=== PATIENT | male | born 1945 | race Caucasian/White ===

== ENCOUNTER 2016-10-28 11:13 | Inpatient (IN) ==
[2016-10-28] MEDS ORDERED: KETOROLAC 30 MG/ML INJECTION IVP ONE (12:40)
[2016-10-28] MEDS: SALINE FLUSH 10ml SYRINGE IVF PRN ×2 (12:58→16:10)
--- NOTE | 2016-10-28 13:08 | Emergency Department Report ---
Abdominal Pain HPI - General Chief Complaint: Abdominal Pain Stated Complaint: Abd pain Time Seen by Provider: 10/28/16 12:05 Source: patient Mode of arrival: ambulatory Limitations: no limitations - History of Present Illness HPI narrative: Mr Campbell is a pleasant 71 year old gentleman who comes to the ER at the recommendation of his PCP Dr. Ankit John at [facility] in [place]. Patient is a newly diagnosed diabetic as of yesterday and Dr. John sent him here for evaluation of DKA according to his notes. Patient reports having a 4 month history of right sided abdominal pain that is constant but intensity fluctuates. Prior cholecystecomy. Denies n/v/d. No fevers. Reports bowels have been irregular, last BM 3 days ago. Takes Senna S prn for bowel motivation, took 2 tabs this morning and 1 last evening. No BM today. Had a colonoscopy in [place] by Dr. Velarde on 10/13 and a biopsy was taken but no results given to patient yet. He was advised of diverticulosis. EGD did not show anything abnormal according to patient. Patient has additional hx of BPH and urine retention and has seen Dr. Hall for this. Takes generic flomax and finasteride currently. Patient has a recent hx of urine frequency but that has simmered down since starting insulin yesterday he reports. Hgb A1c 12.2% yesterday in clinic. UA done and showed glucosuria and ketones but no infectious findings. Patient is tearful and frustrated about the discomfort he has been experiencing, feels he has not been able to obtain adequate pain control and indicates his PCP will not prescribe pain medications. No known hx of pancreatitis. No known hx of hypertriglyceridemia. MD complaint: abdominal pain Onset (ago): month(s) (4) Consistency: constant Location: RUQ, RLQ Quality: sharp Radiation: epigastric Relieving factors: medication (Coleman) Exacerbating factors: nothing Associated symptoms: denies other symptoms Treatments prior to arrival: prescription analgesics - Related Data Home Medications Medication Instructions Recorded Confirmed Acetaminophen [Tylenol Extra 1,000 mg PO Q6H PRN #0 07/25/15 10/28/16 Strength] Fluticasone/Salmeterol [Advair 1 puff INH BID #0 07/25/15 10/28/16 100-50 Diskus] Montelukast Sodium 10 mg PO HS #0 07/25/15 10/28/16 Pravastatin Sodium 40 mg PO DAILY #0 07/25/15 10/28/16 ALPRAZolam [Xanax] 4 mg PO HS #0 02/29/16 10/28/16 Finasteride 5 mg PO HS #0 02/29/16 10/28/16 Ascorbic Acid [Vitamin C] 2,000 mg PO DAILY 10/28/16 10/28/16 Canagliflozin/Metformin HCl 1 tab PO BIDWM 10/28/16 10/28/16 [Invokamet 50-500 mg Tablet] Carvedilol [Carvedilol] 6.25 mg PO DAILY 10/28/16 10/28/16 Ibuprofen 400 mg PO HS 10/28/16 10/28/16 Insulin Glargine,Hum.rec.anlog 10 unit SQ HS 10/28/16 10/28/16 [Lantus Solostar] Mometasone Furoate [Nasonex] 1 puff EA NOSTRIL HS 10/28/16 10/28/16 Multivitamin with Minerals [Men's 1 tab PO DAILY 10/28/16 10/28/16 One Daily] Sennosides/Docusate Sodium 2 tab PO DAILY PRN 10/28/16 10/28/16 [Senna-S Tablet] Tamsulosin [Flomax] 0.4 mg PO HS 10/28/16 10/28/16 Vitamin B Complex Vit C No.4 150 mg PO DAILY 10/28/16 10/28/16 [Super B Complex] dilTIAZem HCl [Diltiazem HCl] 120 mg PO HS 10/28/16 10/28/16 Allergies Allergy/AdvReac Type Severity Reaction Status Date / Time furosemide Allergy Unknown Verified 10/28/16 12:03 methylprednisolone Allergy Unknown Verified 10/28/16 14:30 [From Depo-Medrol] Review of Systems All systems: reviewed and negative except as stated Constitutional: Denies: fever Cardiovascular: Denies: chest pain Respiratory: Denies: cough Gastrointestinal: Reports: abdominal pain, constipation. Denies: nausea, vomiting, diarrhea, hematemesis, melena, hematochezia Genitourinary: Reports: frequency Musculoskeletal: Denies: back pain Neurological: Denies: headache PFSH Patient Stated Medical History Diabetes Mellitus Type 2 Yes - Social History Smoking status: Former smoker Substance use type: does not use Alcohol intake frequency: holidays/special occasions only Housing: house Household members: spouse Current occupational status: retired Current residence: Apartment/Private Home Physical Exam - Head Head exam: atraumatic, normocephalic - Eye Eye exam: Present: normal appearance, PERRL. Absent: scleral icterus, conjunctival injection, nystagmus - ENT ENT exam: Present: normal exam, normal oropharynx, mucous membranes moist - Neck Neck exam: Present: normal inspection, full ROM, trachea midline - Respiratory Respiratory exam: Present: normal lung sounds bilaterally. Absent: respiratory distress - Cardiovascular Cardiovascular exam: Present: regular rate, normal rhythm, systolic murmur - Abdominal Exam Abdominal exam: Present: soft, distention, tenderness (diffuse mostly right mid abdomen), hyperactive bowel sounds. Absent: guarding, rebound, rigidity - Rectal Exam Rectal exam: Present: deferred - Extremities Exam Extremities exam: Present: other (trace LE edema) - Back Exam Back exam: Present: normal inspection - Skin Skin exam: Present: warm, dry, intact - Neurological Exam Neurological exam: Present: alert, oriented X3 - Psychiatric Psychiatric exam: Present: normal affect, normal mood Course Course Narrative: 1345 - pain well controlled after Toradol 30 mg given IV. 1447 - discussed lab and CT findings with patient. pain is well controlled currently. Agrees to be admitted OBS. IVF @125 cc/hr. TO be NPO. - Consultations Consultation #1: Sahsa Time: 14:30 (admit obs) Vital Signs Temperature 98.7 F 10/28/16 11:18 Pulse Rate 74 10/28/16 11:18 Respiratory Rate 15 10/28/16 11:18 Blood Pressure 168/85 H 10/28/16 11:18 Pulse Oximetry 94 10/28/16 11:18 Temperature 98.7 F 10/28/16 11:18 Pulse Rate 74 10/28/16 11:18 Respiratory Rate 15 10/28/16 11:18 Blood Pressure 168/85 H 10/28/16 11:18 Pulse Oximetry 94 10/28/16 11:18 Abdominal Pain - Differential Diagnosis Differential diagnosis: Likely: abdominal pain, acute appendicitis, gastroenteritis, other (tumors), pancreatitis - Medical Records Attestation: I reviewed the patient's medical records. - Lab Data Attestation: I reviewed the patient's lab results. Result diagrams: 10/28/16 12:53 10/28/16 12:53 Lab Results 10/28/16 10/28/16 Range/Units 11:39 12:53 WBC 7.5 (4.5-11.0) T/MM3 RBC 4.75 (4.50-5.90) M/MM3 Hgb 14.8 (13.5-17.5) GM/DL Hct 43.9 (41-53) % MCV 92.4 (80-100) UM3 MCH 31.2 (26-34) UUG MCHC 33.7 (31-37) GM/DL RDW Std Deviation 45.1 (36.9-50.2) FL Plt Count 177 (130-400) T/MM3 MPV 10.4 (9.4-12.4) UM3 Immature Gran % (Auto) 0.1 (0.0-0.5) % Neut % (Auto) 58.1 (33-66) % Lymph % (Auto) 28.8 (23-45) % [place] % (Auto) 9.1 H (0-9.0) % Eos % (Auto) 3.5 (0-4) % Baso % (Auto) 0.4 (0-2) % Neut # 4.4 (1.8-7.7) T/MM3 Lymph # 2.2 (1-4.8) T/MM3 [place] # 0.7 (0-0.8) T/MM3 Eos # 0.3 (0-0.5) T/MM3 Baso # 0.0 (0-0.2) T/MM3 Abs Immat Gran (auto) 0.01 (0.00-0.03) T/MM3 Glucometer 239 (65-110) mg/dL - Radiology Data Attestation: I reviewed the patient's radiology results. CT abdomen and pelvis without contrast shows calcifications to pancreatic head and bilateral renal lesions some simple cysts, some indeterm. Critical Care Time Critical Care Time: No Disposition Clinical Impression: Pancreatitis, Renal lesion Disposition: 02 To OBS [facility] [place] Condition: Stable Prescriptions: No Action Montelukast Sodium 10 mg PO HS #0 Fluticasone/Salmeterol [Advair 100-50 Diskus] 1 puff INH BID #0 Pravastatin Sodium 40 mg PO DAILY #0 Acetaminophen [Tylenol Extra Strength] 1,000 mg PO Q6H PRN #0 PRN Reason: PAIN ALPRAZolam [Xanax] 4 mg PO HS #0 Finasteride 5 mg PO HS #0 dilTIAZem HCl [Diltiazem HCl] 120 mg PO HS Mometasone Furoate [Nasonex] 1 puff EA NOSTRIL HS Vitamin B Complex Vit C No.4 [Super B Complex] 150 mg PO DAILY Multivitamin with Minerals [Men's One Daily] 1 tab PO DAILY Ascorbic Acid [Vitamin C] 2,000 mg PO DAILY Ibuprofen 400 mg PO HS Tamsulosin [Flomax] 0.4 mg PO HS Carvedilol [Carvedilol] 6.25 mg PO DAILY Sennosides/Docusate Sodium [Senna-S Tablet] 2 tab PO DAILY PRN PRN Reason: Constipation Canagliflozin/Metformin HCl [Invokamet 50-500 mg Tablet] 1 tab PO BIDWM Insulin Glargine,Hum.rec.anlog [Lantus Solostar] 10 unit SQ HS Referrals: Ankit John [Primary Care Provider] - - Seen By: midlevel
--- NOTE | 2016-10-28 13:52 | CT Scan Report ---
Indication: Right-sided abd pain PROCEDURE: CT abdomen pelvis wo con: Encounter: Initial Comparison: None Technique: Axial CT images were performed through the abdomen and pelvis without intravenous contrast. Coronal and sagittal two-dimensional reformats. Automated Exposure Control and Iterative Reconstruction dose reducing techniques were utilized. Findings: Calcified granuloma in the right middle lobe. Linear atelectasis or scarring in the left lower lobe. The liver is diffusely fatty infiltrated. No contour deforming mass. The gallbladder is surgically absent. The spleen appears normal. Prominent calcifications in the pancreatic head could be due to prior pancreatitis. The adrenal glands are normal. Exophytic lower pole right renal lesion measuring 2.5 cm in diameter. This has an attenuation of 34 Hounsfield units, higher than a simple cyst. Left lower pole renal lesion on axial image #44 measuring 2.6 cm in diameter contains fluid attenuation consistent with a benign cyst. There is also a medial upper pole left renal cyst measuring 2.3 cm in size. Small nodular focus arising from the anterior interpolar area of the left kidney medially on axial image #36 measures 1.4 cm in diameter and is too small to definitively characterize. No renal or ureteral stone disease. The bladder is moderately distended. Prostate is enlarged measuring 6.4 cm in diameter. No free fluid. No evidence of a bowel obstruction. Sigmoid and descending colonic diverticulosis without evidence of acute diverticulitis. The appendix is normal. Small fat-containing bilateral inguinal hernias. Bone windows show no acute findings. Mild degenerative change in the spine. Impression: 1. No acute disease process seen in the abdomen or pelvis. 2. Bilateral renal lesions, some of which are simple cysts while others are indeterminate. Recommend a dedicated renal ultrasound on a nonemergent basis for further evaluation. 3. Hepatic steatosis. 4. Prostate enlargement. .
[2016-10-28] MEDS: NS 1,000 ML IV SCH ×2 (15:00→18:51)
[2016-10-28] MEDS ORDERED: MORPHINE SULFATE 4mg INJECTION IVP PRN (15:31)
[2016-10-28] MEDS ORDERED: KETOROLAC 30 MG/ML INJECTION IVP PRN (15:34)
--- NOTE | 2016-10-28 16:56 | History & Physical Report ---
<Dena Candelario - Last Filed: 10/28/16 16:52> History of Present Illness Date: 10/28/16 Chief complaint: Abdominal pain HPI: Mr Campbell is a 71 y/o male who presented to the ED after his MD recommended eval for RUQ pain. He actually has been having it for "months", possibly since Mar 2016. He states it is mostly R-sided, but occ spreads across abdomen. It hurts worse when he stands up; food doesn't tend to make it better or make it worse. Typically he's had constipation but recently it's changed to diarrhea. Used to drink alcohol "a lot" - used to drink wine every night but stopped that 2 years ago. He gained a lot of weight while drinking frequently as well, but changed his diet to a modified Hickman diet and has lost 28 lbs over the last 6 weeks. He was dx with DM2 on 10/27/16 with A1c of 12.2%, and was started on insulin and oral agents. In the ED, lipase was >12,[address] abd/pel showed prominent calcifications in the pancreatic head. He was given Toradol and IVF and was admitted under the hospitalist service for pancreatitis. Review of Systems All systems: reviewed and no additional remarkable complaints except as stated - Constitutional Constitutional: Present: weight loss (28 lbs in last 6 weeks). Absent: fever(s) - EENMT Eyes: Present: change in vision (recent dx of cataracts) Balance: Present: vertigo Nose: Absent: obstruction Mouth/Throat: Absent: sore throat - Cardiovascular Cardiovascular: Absent: chest pain, dyspnea on exertion - Respiratory Respiratory: Absent: cough, dyspnea - Gastrointestinal Gastrointestinal: Present: as per HPI - Genitourinary Genitourinary: Present: urinary hesitancy, other (hx BPH; previous problems with retention and needing catheter) - Musculoskeletal Musculoskeletal: Absent: joint swelling - Integumentary/Breasts Integumentary: Absent: wounds - Neurological Neurological: Present: frequent falls (a few weeks ago) - Psychiatric Psychiatric: Present: anxiety - Endocrine Endocrine: Absent: palpitations PFSH DM2 - new dx CAD HTN asthma LISA on CPAP BPH anxiety obesity cataracts Surgical History: upper gi and colonoscopy 11/01 - Dr. Hairston - diverticulosis. stress test around 2014. cholecystectomy about 2006. sinus sx x3. coronary stents x2 about 2000. umbilical hernia Family History: brother - DM and pancreatitis Mother at age 89 and Father at age 86. No FH for cancer. - Social History Smoking status: Former smoker Substance use type: does not use Alcohol intake: former Alcohol intake frequency: former alcohol drinker (wine & beer. stopped wine 2 years ago (up to 2 bottles/noc) & stopped drinking beer about 2 weeks ago.) Current occupational status: retired Previous occupational history: cared for developmentally delayed persons Current residence: Apartment/Private Home Social history: PCP - Dr. Scott John Medications Home Medications Medication Instructions Recorded Confirmed Type Acetaminophen [Tylenol Extra 1,000 mg PO Q6H PRN #0 07/25/15 10/28/16 History Strength] Fluticasone/Salmeterol [Advair 1 puff INH BID #0 07/25/15 10/28/16 History 100-50 Diskus] Montelukast Sodium 10 mg PO HS #0 07/25/15 10/28/16 History Pravastatin Sodium 40 mg PO DAILY #0 07/25/15 10/28/16 History ALPRAZolam [Xanax] 4 mg PO HS #0 02/29/16 10/28/16 History Finasteride 5 mg PO HS #0 02/29/16 10/28/16 History Ascorbic Acid [Vitamin C] 2,000 mg PO DAILY 10/28/16 10/28/16 History Canagliflozin/Metformin HCl 1 tab PO BIDWM 10/28/16 10/28/16 History [Invokamet 50-500 mg Tablet] Carvedilol [Carvedilol] 6.25 mg PO DAILY 10/28/16 10/28/16 History Ibuprofen 400 mg PO HS 10/28/16 10/28/16 History Insulin Glargine,Hum.rec.anlog 10 unit SQ HS 10/28/16 10/28/16 History [Lantus Solostar] Mometasone Furoate [Nasonex] 1 puff EA NOSTRIL HS 10/28/16 10/28/16 History Multivitamin with Minerals [Men's 1 tab PO DAILY 10/28/16 10/28/16 History One Daily] Sennosides/Docusate Sodium 2 tab PO DAILY PRN 10/28/16 10/28/16 History [Senna-S Tablet] Tamsulosin [Flomax] 0.4 mg PO HS 10/28/16 10/28/16 History Vitamin B Complex Vit C No.4 150 mg PO DAILY 10/28/16 10/28/16 History [Super B Complex] dilTIAZem HCl [Diltiazem HCl] 120 mg PO HS 10/28/16 10/28/16 History Allergies Allergy/AdvReac Type Severity Reaction Status Date / Time furosemide Allergy Unknown Verified 10/28/16 12:03 methylprednisolone Allergy Unknown Verified 10/28/16 14:30 [From Depo-Medrol] Exam Vital Signs: Temperature 98.7 F 10/28/16 11:18 Pulse Rate 60 10/28/16 13:45 Respiratory Rate 16 10/28/16 13:45 Blood Pressure 188/86 H 10/28/16 13:45 Pulse Oximetry 92 10/28/16 13:45 Height: 1.78 m Weight: 110.677 kg - Constitutional Present: no acute distress, well nourished, well developed, obese - Routine HEENT Exam Eye: Absent: conjunctival icterus ENT: Present: oropharynx clear - Routine Neck Exam Present: supple - Routine Respiratory Exam Present: CTA bilaterally - Routine Cardiovascular Exam Present: S1, S2 - Routine Abdominal Exam Present: soft, normoactive bowel sounds, non distended. Absent: tenderness (RUQ ) - Routine Extremities Exam Present: no edema - Routine Skin Exam Present: intact, dry, warm - Routine Neurological Exam Present: alert, oriented X3 - Routine Psychiatric Exam Present: normal affect, normal thought process (slightly delayed) Results - Labs CBC & Chem 7: 10/28/16 12:53 10/28/16 12:53 Assessment and Plan (1) Pancreatitis Current visit: Yes Status: Acute (2) New onset type 2 diabetes mellitus Current visit: Yes Status: Acute DVT Prophylaxis: SCD's GI Prophylaxis: Protonix Resuscitation Status: Full Code Assessment and Plan: Admit, inpatient status, under the hospitalist service. 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 <Tan Lopez S - Last Filed: 10/28/16 17:40> History of Present Illness Date: 10/28/16 [facility] Patient Stated Medical History Diabetes Mellitus Type 2 Yes Exam Vital Signs: Temperature 98.7 F 10/28/16 11:18 Pulse Rate 68 10/28/16 16:55 Respiratory Rate 16 10/28/16 13:45 Blood Pressure 198/78 H 10/28/16 16:55 Pulse Oximetry 92 10/28/16 13:45 Height: 5 ft 10 in Weight: 111.4 kg Results - Labs CBC & Chem 7: 10/28/16 12:53 10/28/16 12:53 Assessment and Plan (1) Pancreatitis Current visit: Yes Status: Acute (2) New onset type 2 diabetes mellitus Current visit: Yes Status: Acute Assessment and Plan: Patient seen and examined with Jacinta Candelario NP. Agree with above A/P. Case discussed with at bedside. Hospital Course Summary Disclaimer: The visit summary below is not to be considered part of the above Progress Note.
[2016-10-28 16:59] VITALS: BMI 35.2
[2016-10-28] MEDS: HYDROMORPHONE 2 MG/ML INJECTION IVP PRN ×2 (18:15→21:25)
[2016-10-28] MEDS: INSULIN REGULAR, HUMAN 100 UNIT/ML INJECTION SQ PRN (18:40)
[2016-10-28] MEDS: ALPRAZolam 1 MG TABLET PO SCH ×2 (18:40→21:25)
[2016-10-28] MEDS: FINASTERIDE 5 MG TABLET PO SCH (21:35)
[2016-10-28] MEDS: TAMSULOSIN 0.4 MG CAPSULE PO SCH (21:35)
[2016-10-28] MEDS: INSULIN GLARGINE 100unit/ml INJECTION SQ SCH (21:38)
[2016-10-28] MEDS ORDERED: ALPRAZOLAM 4 MG PO SCH (22:00)
[2016-10-28] MEDS ORDERED: PRAVASTATIN 40 MG TABLET PO SCH (22:00)
[2016-10-28] MEDS ORDERED: MOMETASONE FUROATE EA NOSTRIL SCH (22:00)
[2016-10-29] MEDS: HYDROMORPHONE 2 MG/ML INJECTION IVP PRN ×6 (02:52→20:08)
[2016-10-29] MEDS: NS 1,000 ML IV SCH ×4 (02:53→20:13)
[2016-10-29] MEDS: ONDANSETRON 4 MG/2 ML INJECTION IVP PRN ×2 (03:05→20:04)
[2016-10-29] MEDS: FLUTICASONE NASAL SPRAY 50mcg EA NOSTRIL SCH (08:53)
[2016-10-29] MEDS: SALINE FLUSH 10ml SYRINGE IVF PRN ×3 (08:53→17:01)
[2016-10-29] MEDS: CARVEDILOL 6.25 MG TABLET PO SCH (08:54)
[2016-10-29] MEDS: ALPRAZolam 1 MG TABLET PO SCH ×4 (08:54→22:07)
[2016-10-29] MEDS: PRAVASTATIN 40 MG TABLET PO SCH (08:54)
[2016-10-29] MEDS: PANTOPRAZOLE 40 MG INJECTION IVP SCH (08:54)
--- NOTE | 2016-10-29 11:21 | Progress Note ---
Subjective: States the pain is improved today. Not feeling very hungry. No nausea. No events overnight. States that the pain is still present but not as severe. Objective Vital signs: Temperature 97.9 F 10/29/16 07:37 Pulse Rate 64 10/29/16 07:37 Respiratory Rate 15 10/29/16 08:40 Blood Pressure 144/71 H 10/29/16 07:37 Pulse Oximetry 92 10/29/16 07:37 Oxygen Delivery Method Room Air Gen.-awake alert oriented 3, in no acute distress CV-regular rate and rhythm Lungs-clear auscultation bilaterally Abdomen-obese, soft, nondistended, nontender, bowel sounds positive Extremities-no edema cyanosis or clubbing Weight: 112 kg Results - Labs CBC & Chem 7: 10/29/16 04:21 10/29/16 04:21 Assessment and Plan (1) Pancreatitis Current visit: Yes Status: Acute Clinically improving. Will start ice chips today. Continue pain medications. 10/29/16 11:21 (2) New onset type 2 diabetes mellitus Current visit: Yes Status: Acute Stable on current regimen. 10/29/16 11:21 Assessment and Plan: Patient seen and examined with Jacinta Candelario NP. Agree with above A/P. Case discussed with at bedside. Sepsis Assessment - Evaluation Sepsis screening result: No Definite Risk Hospital Course Summary Disclaimer: The visit summary below is not to be considered part of the above Progress Note.
[2016-10-29] MEDS: FINASTERIDE 5 MG TABLET PO SCH (22:07)
[2016-10-29] MEDS: TAMSULOSIN 0.4 MG CAPSULE PO SCH (22:07)
[2016-10-29] MEDS: INSULIN GLARGINE 100unit/ml INJECTION SQ SCH (22:07)
[2016-10-30] MEDS: HYDROMORPHONE 2 MG/ML INJECTION IVP PRN ×5 (00:15→21:29)
[2016-10-30] MEDS: NS 1,000 ML IV SCH ×4 (04:28→14:04)
[2016-10-30] MEDS: ONDANSETRON 4 MG/2 ML INJECTION IVP PRN ×3 (04:28→21:23)
--- NOTE | 2016-10-30 09:30 | Progress Note ---
Subjective: Dates that the pain is much improved. No events overnight. Wants to try and be more active today. Objective Vital signs: Temperature 97.9 F 10/30/16 08:00 Pulse Rate 85 10/30/16 08:00 Respiratory Rate 18 10/30/16 09:11 Blood Pressure 148/71 H 10/30/16 08:00 Pulse Oximetry 92 10/30/16 08:00 Oxygen Delivery Method CPAP Gen.-awake alert oriented 3, in no acute distress CV-regular rate and rhythm Lungs-clear auscultation bilaterally Abdomen-obese, soft, nondistended, nontender, bowel sounds positive Extremities-no edema cyanosis or clubbing Weight: 113.6 kg Results - Labs CBC & Chem 7: 10/30/16 05:06 10/30/16 05:06 Assessment and Plan (1) Pancreatitis Current visit: Yes Status: Acute Improving. Will start on full liquid diet and advance as tolerated. (2) New onset type 2 diabetes mellitus Current visit: Yes Status: Chronic Stable on current regimen. 10/29/16 11:21 Resuscitation Status: Full Code Assessment and Plan: Patient seen and examined with Jacinta Candelario NP. Agree with above A/P. Case discussed with at bedside. Sepsis Assessment - Evaluation Sepsis screening result: No Definite Risk Hospital Course Summary Disclaimer: The visit summary below is not to be considered part of the above Progress Note.
[2016-10-30] MEDS: PRAVASTATIN 40 MG TABLET PO SCH (09:39)
[2016-10-30] MEDS: ALPRAZolam 1 MG TABLET PO SCH ×4 (09:39→21:20)
[2016-10-30] MEDS: CARVEDILOL 6.25 MG TABLET PO SCH (09:39)
[2016-10-30] MEDS: PANTOPRAZOLE 40 MG INJECTION IVP SCH (09:39)
[2016-10-30] MEDS: FLUTICASONE NASAL SPRAY 50mcg EA NOSTRIL SCH (09:40)
[2016-10-30] MEDS: DICYCLOMINE 10mg CAPSULE PO SCH ×3 (11:55→21:45)
[2016-10-30] MEDS: INSULIN REGULAR, HUMAN 100 UNIT/ML INJECTION SQ PRN ×3 (11:55→21:22)
[2016-10-30] MEDS ORDERED: PNEUMOCOCCAL 13 VACCINE 0.5ml INJECTION IM ONE (16:46)
[2016-10-30] MEDS: INSULIN GLARGINE 100unit/ml INJECTION SQ SCH (21:22)
[2016-10-30] MEDS: TAMSULOSIN 0.4 MG CAPSULE PO SCH (21:45)
[2016-10-30] MEDS: FINASTERIDE 5 MG TABLET PO SCH (21:45)
[2016-10-31] MEDS: HYDROMORPHONE 2 MG/ML INJECTION IVP PRN ×2 (01:55→08:55)
[2016-10-31] MEDS ORDERED: ALBUTEROL 2.5mg/3ml (0.083%) NEB AEROSOL PRN (04:04)
[2016-10-31] MEDS: DICYCLOMINE 10mg CAPSULE PO SCH ×4 (05:48→21:24)
[2016-10-31] MEDS: NS 1,000 ML IV SCH ×3 (05:52→22:30)
[2016-10-31] MEDS: INSULIN REGULAR, HUMAN 100 UNIT/ML INJECTION SQ PRN ×4 (06:50→21:25)
[2016-10-31] MEDS: PANTOPRAZOLE 40 MG INJECTION IVP SCH (08:24)
[2016-10-31] MEDS: PRAVASTATIN 40 MG TABLET PO SCH (08:25)
[2016-10-31] MEDS: CARVEDILOL 6.25 MG TABLET PO SCH (08:25)
[2016-10-31] MEDS: FLUTICASONE NASAL SPRAY 50mcg EA NOSTRIL SCH (08:25)
[2016-10-31] MEDS: ALPRAZolam 1 MG TABLET PO SCH ×4 (08:25→21:24)
[2016-10-31] MEDS: ACETAMINOPHEN 325 MG TABLET PO PRN ×2 (11:19→20:49)
--- NOTE | 2016-10-31 11:56 | XRay Report ---
INDICATION: hypoxia PROCEDURE: CHEST 2-VIEWS UPRIGHT (PA & LAT) Encounter: Initial COMPARISON: CT abdomen and pelvis dated October 28, 2016 FINDINGS: Left basilar consolidation. Right lung appears clear. No pneumothorax. Blunting of the left costophrenic angle as seen on the prior CT is probably due to pleural thickening rather than pleural effusion. Heart size and mediastinal contours are within normal limits. Pulmonary vascularity appears normal. Degenerative change in the spine. Impression: Left basilar airspace disease could be due to atelectasis, scarring or pneumonia. .
[2016-10-31] MEDS ORDERED: KETOROLAC 30 MG/ML INJECTION IVP PRN (14:18)
--- NOTE | 2016-10-31 14:22 | Progress Note ---
Subjective: Became hypoxic overnight. Very lethargic and altered today after receiving Dilaudid. States there was no worsening of the pain when he ate. Per nursing staff, he is very unsteady on his feet. Case discussed with at bedside. Objective Vital signs: Temperature 98.1 F 10/31/16 07:47 Pulse Rate 79 10/31/16 07:47 Respiratory Rate 18 10/31/16 08:52 Blood Pressure 153/72 H 10/31/16 07:47 Pulse Oximetry 93 10/31/16 07:47 Oxygen Delivery Method Room Air Oxygen Flow Rate 6 General-lethargic but arousable, in no acute distress CV-regular rate and rhythm Lungs-clear auscultation bilaterally Abdomen-obese, benign Extremities-no edema cyanosis or clubbing Weight: 115 kg Results - Labs CBC & Chem 7: 10/31/16 04:27 10/31/16 04:27 Assessment and Plan (1) Pancreatitis Current visit: Yes Status: Acute Improving. Tolerating diet. Will DC narcotics. Continue IVF. 10/31/16 14:21 (2) New onset type 2 diabetes mellitus Current visit: Yes Status: Chronic Stable on current regimen. 10/29/16 11:21 (3) LISA (obstructive sleep apnea) Current visit: Yes Status: Chronic CPAP QHS. 10/31/16 14:22 DVT Prophylaxis: Lovenox GI Prophylaxis: Protonix Resuscitation Status: Full Code Sepsis Assessment - Evaluation Sepsis screening result: No Definite Risk Hospital Course Summary Disclaimer: The visit summary below is not to be considered part of the above Progress Note.
[2016-10-31] MEDS: ENOXAPARIN 40 MG/0.4 ML INJECTION SQ SCH (15:10)
[2016-10-31] MEDS: TRAMADOL 50 MG TABLET PO PRN ×2 (18:32→23:21)
[2016-10-31] MEDS: LORazepam 1 MG TABLET PO PRN ×2 (18:33→23:21)
[2016-10-31] MEDS: TAMSULOSIN 0.4 MG CAPSULE PO SCH (21:24)
[2016-10-31] MEDS: FINASTERIDE 5 MG TABLET PO SCH (21:25)
[2016-10-31] MEDS: INSULIN GLARGINE 100unit/ml INJECTION SQ SCH (21:26)
[2016-11-01] MEDS: NS 1,000 ML IV SCH ×2 (00:22→09:05)
[2016-11-01] MEDS: DICYCLOMINE 10mg CAPSULE PO SCH ×2 (05:42→12:01)
[2016-11-01] MEDS: INSULIN REGULAR, HUMAN 100 UNIT/ML INJECTION SQ PRN ×4 (05:54→21:42)
[2016-11-01] MEDS: PANTOPRAZOLE 40 MG INJECTION IVP SCH (08:55)
[2016-11-01] MEDS: ENOXAPARIN 40 MG/0.4 ML INJECTION SQ SCH (08:55)
[2016-11-01] MEDS: FLUTICASONE NASAL SPRAY 50mcg EA NOSTRIL SCH (08:55)
[2016-11-01] MEDS: CARVEDILOL 6.25 MG TABLET PO SCH (08:55)
[2016-11-01] MEDS: PRAVASTATIN 40 MG TABLET PO SCH (08:56)
[2016-11-01] MEDS: ALPRAZolam 1 MG TABLET PO SCH ×4 (08:56→21:13)
[2016-11-01] MEDS: TRAMADOL 50 MG TABLET PO PRN ×2 (09:04→21:12)
[2016-11-01] MEDS ORDERED: MAGNESIUM CITRATE 296ml PO ONE (11:34)
--- NOTE | 2016-11-01 16:28 | Progress Note ---
Subjective: States that he hasn't had a BM in days. concerned about episodes of confusion. Objective Vital signs: Temperature 98.1 F 11/01/16 16:00 Pulse Rate 65 11/01/16 16:00 Respiratory Rate 18 11/01/16 16:00 Blood Pressure 150/85 H 11/01/16 16:00 Pulse Oximetry 91 11/01/16 16:00 Oxygen Delivery Method Nasal Cannula Oxygen Flow Rate 3 General-aaox3, in no acute distress CV-regular rate and rhythm Lungs-clear auscultation bilaterally Abdomen-obese, benign Extremities-no edema cyanosis or clubbing Weight: 112.7 kg Results - Labs CBC & Chem 7: 11/01/16 06:22 11/01/16 06:22 - ABG Interpretation ABG results: 10/31/16 14:47 ABG pH 7.400 ABG pCO2 40 ABG pO2 50 L ABG HCO3 25 ABG Total CO2 26.0 ABG O2 Saturation 85.0 L ABG Base Excess 0.0 Assessment and Plan (1) Pancreatitis Current visit: Yes Status: Resolved Resolved. Concern for ileus given constipation. Continue current mgmt. (2) New onset type 2 diabetes mellitus Current visit: Yes Status: Chronic Stable on current regimen. 10/29/16 11:21 (3) LISA (obstructive sleep apnea) Current visit: Yes Status: Chronic CPAP QHS. 10/31/16 14:22 DVT Prophylaxis: Lovenox GI Prophylaxis: Protonix Sepsis Assessment - Evaluation Sepsis screening result: No Definite Risk Hospital Course Summary Disclaimer: The visit summary below is not to be considered part of the above Progress Note.
[2016-11-01] MEDS ORDERED: FLEET PHOSPHO - SODA ENEMA 133ml PR PRN (18:20)
[2016-11-01] MEDS: FINASTERIDE 5 MG TABLET PO SCH (21:12)
[2016-11-01] MEDS: TAMSULOSIN 0.4 MG CAPSULE PO SCH (21:12)
[2016-11-01] MEDS: INSULIN GLARGINE 100unit/ml INJECTION SQ SCH (21:13)
[2016-11-01] MEDS: SALINE FLUSH 10ml SYRINGE IVF PRN (21:13)
[2016-11-02 01:17] VITALS: RESP 20
[2016-11-02] MEDS: INSULIN REGULAR, HUMAN 100 UNIT/ML INJECTION SQ PRN (06:48)
[2016-11-02 07:25] VITALS: BP 160/81; TEMP 97.7; O2SAT 92
[2016-11-02] MEDS: SALINE FLUSH 10ml SYRINGE IVF PRN (07:34)
[2016-11-02] MEDS: PANTOPRAZOLE 40 MG INJECTION IVP SCH (08:59)
[2016-11-02] MEDS: ENOXAPARIN 40 MG/0.4 ML INJECTION SQ SCH (09:00)
[2016-11-02] MEDS: PRAVASTATIN 40 MG TABLET PO SCH (09:00)
[2016-11-02] MEDS: CARVEDILOL 6.25 MG TABLET PO SCH (09:00)
[2016-11-02] MEDS: ALPRAZolam 1 MG TABLET PO SCH (09:00)
[2016-11-02] MEDS: FLUTICASONE NASAL SPRAY 50mcg EA NOSTRIL SCH (09:01)
[2016-11-02 09:02] VITALS: PULSE 75
--- NOTE | 2016-11-02 09:28 | Discharge Instructions ---
Discharge Plan - Med Rec/Dispo [facility] Instructions: Pancreatitis (DC) Prescriptions: New Tramadol [Ultram] 100 mg PO Q6H PRN #30 tablet PRN Reason: Pain Continue Montelukast Sodium 10 mg PO HS #0 Fluticasone/Salmeterol [Advair 100-50 Diskus] 1 puff INH BID #0 Pravastatin Sodium 40 mg PO DAILY #0 Acetaminophen [Tylenol Extra Strength] 1,000 mg PO Q6H PRN #0 PRN Reason: PAIN ALPRAZolam [Xanax] 4 mg PO HS #0 Finasteride 5 mg PO HS #0 dilTIAZem HCl [Diltiazem HCl] 120 mg PO HS Mometasone Furoate [Nasonex] 1 puff EA NOSTRIL HS Vitamin B Complex Vit C No.4 [Super B Complex] 150 mg PO DAILY Multivitamin with Minerals [Men's One Daily] 1 tab PO DAILY Ascorbic Acid [Vitamin C] 2,000 mg PO DAILY Ibuprofen 400 mg PO HS Tamsulosin [Flomax] 0.4 mg PO HS Carvedilol 6.25 mg PO DAILY Sennosides/Docusate Sodium [Senna-S Tablet] 2 tab PO DAILY PRN PRN Reason: Constipation Canagliflozin/Metformin HCl [Invokamet 50-500 mg Tablet] 1 tab PO BIDWM Insulin Glargine,Hum.rec.anlog [Lanmac Solostar] 10 unit SQ HS Discharge Instructions/Outpatient Orders: Final Provider Discharge Instructions Location: Determined By Patient - Disposition 01 Discharged Home, Self-Care
--- NOTE | 2016-11-02 09:34 | Discharge Summary ---
Discharge Information Date of admission: 10/28/16 15:54 Attending Physician: Tan Lopez MD Primary care physician: Ankit John Consults: 11/01/16 11:58 Dietary Consult [CONS] Routine Comment: Reason For Exam: 1800 const carb diet dc today? - Discharge Diagnosis (1) Pancreatitis Qualifiers: Chronicity: acute Acute pancreatitis complication: no infection or necrosis Status: Resolved (2) New onset type 2 diabetes mellitus Status: Chronic (3) LISA (obstructive sleep apnea) Status: Chronic - Laboratory Labs: 11/01/16 06:22 11/01/16 06:22 History of Present Illness HPI: Mr Campbell is a 71 y/o male who presented to the ED after his MD recommended eval for RUQ pain. He actually has been having it for "months", possibly since Mar 2016. He states it is mostly R-sided, but occ spreads across abdomen. It hurts worse when he stands up; food doesn't tend to make it better or make it worse. Typically he's had constipation but recently it's changed to diarrhea. Used to drink alcohol "a lot" - used to drink wine every night but stopped that 2 years ago. He gained a lot of weight while drinking frequently as well, but changed his diet to a modified Hickman diet and has lost 28 lbs over the last 6 weeks. He was dx with DM2 on 10/27/16 with A1c of 12.2%, and was started on insulin and oral agents. In the ED, lipase was >12,[address] abd/pel showed prominent calcifications in the pancreatic head. He was given Toradol and IVF and was admitted under the hospitalist service for pancreatitis. Objective Vital signs: Temperature 97.7 F 11/02/16 07:22 Pulse Rate 75 11/02/16 08:00 Respiratory Rate 20 11/02/16 07:22 Blood Pressure 160/81 H 11/02/16 07:22 Pulse Oximetry 92 11/02/16 07:22 Oxygen Delivery Method Nasal Cannula Oxygen Flow Rate 2 General-aaox3, in no acute distress CV-regular rate and rhythm Lungs-clear auscultation bilaterally Abdomen-obese, benign Extremities-no edema cyanosis or clubbing Weight: 110.7 kg Hospital Course This is a general summary of the patient's hospital course. For more details refer to the complete medical record. Mr. Campbell was admitted for acute pancreatitis. CAT scan showed prominent calcifications in the pancreas. The patient has likely had multiple recurrent episodes over the past few months given his history. He was kept nothing by mouth and treated with antiemetics and pain medications. Note, narcotics make him very lethargic and altered. He was slow to improve but is tolerating solid foods at time of discharge. There is concern that the patient had developed an ileus during his hospitalization and was given an enema. His symptoms as far as constipation goes has resolved. He is being restarted on all of his previous outpatient medications and being given a prescription for tramadol for pain control should it arise. Patient states that he still has some very mild abdominal pain but nothing like when he came into the hospital. He was seen by dietary for diabetic education. was in the room at this time as well. He has been strongly urged to exercise and lose weight. Time spent with patient: 25 - 35 minutes DVT Prophylaxis: Lovenox GI Prophylaxis: Protonix Discharge Plan - Med Rec/Dispo [facility] Instructions: Pancreatitis (DC) Prescriptions: New Tramadol [Ultram] 100 mg PO Q6H PRN #30 tablet PRN Reason: Pain Continue Montelukast Sodium 10 mg PO HS #0 Fluticasone/Salmeterol [Advair 100-50 Diskus] 1 puff INH BID #0 Pravastatin Sodium 40 mg PO DAILY #0 Acetaminophen [Tylenol Extra Strength] 1,000 mg PO Q6H PRN #0 PRN Reason: PAIN ALPRAZolam [Xanax] 4 mg PO HS #0 Finasteride 5 mg PO HS #0 dilTIAZem HCl [Diltiazem HCl] 120 mg PO HS Mometasone Furoate [Nasonex] 1 puff EA NOSTRIL HS Vitamin B Complex Vit C No.4 [Super B Complex] 150 mg PO DAILY Multivitamin with Minerals [Men's One Daily] 1 tab PO DAILY Ascorbic Acid [Vitamin C] 2,000 mg PO DAILY Ibuprofen 400 mg PO HS Tamsulosin [Flomax] 0.4 mg PO HS Carvedilol 6.25 mg PO DAILY Sennosides/Docusate Sodium [Senna-S Tablet] 2 tab PO DAILY PRN PRN Reason: Constipation Canagliflozin/Metformin HCl [Invokamet 50-500 mg Tablet] 1 tab PO BIDWM Insulin Glargine,Hum.rec.anlog [Lantus Solostar] 10 unit SQ HS Discharge Instructions/Outpatient Orders: Final Provider Discharge Instructions Location: Determined By Patient - Disposition 01 Discharged Home, Self-Care
== END 2016-11-02 10:15 | disposition home or self-care (01) | DRG 440 ==
LOC: ED 11:13 → MED 11:13 → OBSVTOIN 15:54 → MED 16:35
PROVIDERS: ADMIT Internal Medicine; ATTEND Internal Medicine